=== PATIENT | female | born 1930 | race Caucasian/White ===

== ENCOUNTER → 2016-02-19 | Outpatient (CLI) | payer MEDICARE, OTHER ==
[2016-01-24 19:28] VITALS: BP 190/86
[~2016-02-19] MED LIST: ALPR0.5T PO; ASCO10006 PO; ASPI325T11 PO; CARB1TAB2 PO; CARV25TA2 PO; CITA20TA9 PO; CYAN10005 PO; DILT180C29 PO; GUAI600T38 PO; LOSA100T6 PO; OMEP20CA9 PO; SIMV20TA PO; VITA400C11 PO
--- NOTE | 2016-02-20 09:40 | RAD ---
Left lower extremity venous Doppler. History: Agent fell, leg pain, edema Left lower extremity venous Doppler study was performed. Real-time imaging with compression, color-flow imaging and spectral Doppler with augmentation were utilized for evaluation. The common femoral, greater saphenous, peroneal, and femoral veins are compressible. The popliteal vein is compressible. There is normal flow with color imaging in the deep veins of the left lower extremity. There is normal antegrade flow with augmentation. There is edema in the calf in the region of the pain which is superficial. There is flow with color imaging in the deep veins of the calf. Impression: 1. Superficial edema in the leg. 2. Negative for deep venous thrombosis.
== END | disposition home or self-care (01) ==
LOC: US 15:01
PROVIDERS: ATTEND Family Medicine
DX: I87.1 Compression of vein (principal)
CPT/HCPCS: 93971

== ENCOUNTER 2016-06-26 16:29 | Emergency (ER) | payer MEDICARE, OTHER ==
[~2016-06-26] VITALS: Ht 149.9 cm; Wt 53.1 kg
[2016-06-26] MEDS ORDERED: GLUCAGON,HUMAN RECOMBINANT 1 MG/ML VIAL. IM ONE (16:45)
[2016-06-26] MEDS ORDERED: NITROGLYCERIN SUBLINGUAL 0.4 MG BOTTLE OF 25. SL PRN (16:45)
--- NOTE | 2016-06-26 16:52 | PHYS DOC ---
Past Medical History Past Medical History: CHF, COPD, Diverticulitis, Hypertension Past Surgical History: Cholecystectomy, Other Additional Past Surgical Histo: AORTIC BYPASS, SMALL BOWEL Alcohol Use: None Drug Use: None Adult General Chief Complaint Chief Complaint: CHOKING HPI HPI This is an 86-year-old female who states she was eating steak yesterday and has a sensation that it is lodged in her lower esophagus. She states she cannot swallow her saliva. She is in no acute distress at this time. She denies any chest pain or shortness of breath. She has history of fluid bolus approximately 5 years ago that required endoscopy and dilatation procedure. Patient is normally O2 dependent at night secondary to COPD. Her room air saturation upon arrival is 95%. Review of Systems Review of Systems Constitutional: Denies fever or chills [] Eyes: Denies change in visual acuity, redness, or eye pain [] HENT: Denies nasal congestion or sore throat [] Respiratory: Denies cough or shortness of breath [] Cardiovascular: No additional information not addressed in HPI [] GI: Denies abdominal pain, nausea, vomiting, bloody stools or diarrhea [] : Denies dysuria or hematuria [] Musculoskeletal: Denies back pain or joint pain [] Integument: Denies rash or skin lesions [] Neurologic: Denies headache, focal weakness or sensory changes [] Endocrine: Denies polyuria or polydipsia [] Current Medications Current Medications Current Medications Medications (Trade) Dose Ordered Sig/Landy Start Time Stop Time Status Last Admin Dose Admin Fentanyl Citrate (Fentanyl 2ml Vial) 50 mcg PRN Q5MIN PRN 06/26/16 18:00 06/26/16 18:13 DC Glucagon (Glucagen) 1 mg 1X ONCE 06/26/16 16:45 06/26/16 16:48 DC 06/26/16 17:02 1 MG Hydromorphone HCl (Dilaudid) 0.5 mg PRN Q10MIN PRN 06/26/16 18:00 06/26/16 18:13 DC Lidocaine HCl (Lidocaine Pf 2% Vial) 5 ml STK-MED ONCE 06/26/16 18:13 06/26/16 18:14 DC Morphine Sulfate 1 mg PRN Q10MIN PRN 06/26/16 18:00 06/26/16 18:13 DC Nitroglycerin (Nitrostat) 0.4 mg PRN Q5MIN PRN 06/26/16 16:45 06/26/16 18:13 DC 06/26/16 17:03 0.4 MG Prochlorperazine Edisylate (Compazine) 5 mg PACU PRN PRN 06/26/16 18:00 06/26/16 18:13 DC Propofol 20 ml @ As Directed STK-MED ONCE 06/26/16 18:13 06/26/16 18:14 DC Ringer's Solution 1,000 ml @ 0 mls/hr Q0M 06/26/16 17:48 06/26/16 18:13 DC Sodium Chloride 500 ml @ 250 mls/hr 1X ONCE 06/26/16 17:15 06/26/16 18:13 DC 06/26/16 17:27 250 MLS/HR Allergies Allergies Allergies Coded Allergies Type Severity Reaction Last Updated Verified TONI Inhibitors Allergy Intermediate 08/12/13 Yes Cephalosporins Allergy Intermediate 08/12/13 Yes Penicillins Allergy Intermediate 08/12/13 Yes levofloxacin Allergy Intermediate 08/12/13 Yes Physical Exam Physical Exam Constitutional: Well developed, well nourished, no acute distress, non-toxic appearance. [] HENT: Normocephalic, atraumatic, bilateral external ears normal, oropharynx moist, no oral exudates, nose normal. [] Eyes: PERRLA, EOMI, conjunctiva normal, no discharge. [] Neck: Normal range of motion, no tenderness, supple, no stridor. [] Cardiovascular:Heart rate regular rhythm, no murmur [] Lungs & Thorax: Bilateral breath sounds clear to auscultation [] Abdomen: Bowel sounds normal, soft, no tenderness, no masses, no pulsatile masses. [] Skin: Warm, dry, no erythema, no rash. [] Back: No tenderness, no CVA tenderness. [] Extremities: No tenderness, no cyanosis, no clubbing, ROM intact, no edema. [] Neurologic: Alert and oriented X 3, normal motor function, normal sensory function, no focal deficits noted. [] Psychologic: Affect normal, judgement normal, mood normal. [] Current Patient Data Vital Signs Vital Signs Date Time Temp Pulse Resp B/P (MAP) Pulse Ox O2 Delivery O2 Flow Rate FiO2 06/26/16 19:06 73 20 142/65 94 Room Air 06/26/16 18:43 2.0 06/26/16 18:33 98.7 98.7 EKG EKG [] Radiology/Procedures Radiology/Procedures [] Course & Med Decision Making Course & Med Decision Making Pertinent Labs and Imaging studies reviewed. (See chart for details) This 86-year-old female who is hypertensive at 185/78 upon arrival with likely food bolus will receive sublingual nitroglycerin as well as IM glucagon. Consult to GI will be placed for likely endoscopy. I discussed the case with the GI doctor, Dr. Hitchcock, who agreed to come in for endoscopy. The patient's O2 requirements she will likely need intubation in the OR for this procedure. I communicated this need with Dr. Hitchcock, who agreed that the patient will likely be a candidate for OR. She was transferred to the OR without incident. A review of her operative report shows that she successfully had a food bolus removed and her esophagus was dilated. She was then discharged to follow with GI have a soft liquid diet at home. Dragon Disclaimer Dragon Disclaimer This electronic medical record was generated, in whole or in part, using a voice recognition dictation system. Departure Departure Impression: Primary Impression: Food impaction of esophagus Disposition: ADMITTED INPATIENT Admitting Physician: Other Condition: STABLE Referrals: YOLANDA ESCALANTE MD (PCP) NEDRA VALDEZ DO June 26, 2016 16:52
[2016-06-26] MEDS ORDERED: IV NORMAL SALINE 1000ML BAG 500 ML IV ONE (17:15)
[2016-06-26] MEDS ORDERED: IV RINGERS,LACTATED 1000ML 1,000 ML IV SCH (17:48)
[2016-06-26] MEDS ORDERED: LIDOCAINE 1% 1 ML SYRINGE. ID PRN (18:00)
[2016-06-26] MEDS ORDERED: PROCHLORPERAZINE 10 MG/2 ML VIAL. IV PRN (18:00)
[2016-06-26] MEDS ORDERED: HYDROmorphone 2 MG/ML VIAL IV PRN (18:00)
[2016-06-26] MEDS ORDERED: fentaNYL PF VIAL 100 MCG/2 ML VIAL IV PRN ×2 (18:00)
[2016-06-26] MEDS ORDERED: MORPHINE SULFATE 2 MG/ML DISP.SYRIN. IV PRN (18:00)
[2016-06-26] MEDS ORDERED: LIDOCAINE 2% PF Vial for OR 5 ML VIAL. ONE (18:13)
[2016-06-26] MEDS ORDERED: PROPOFOL 20 ML IV ONE (18:13)
--- NOTE | 2016-06-26 18:39 | PDOC2 ---
GI CONSULT Reason For Consult: Food impaction of esophagus, dysphagia HPI: HPI: 86 yo WF- COPD and CHF - in assisted living- no chronic dysphagia symptoms but prior hx of food impaction 5 years ago at [facility]- last night, had steak at family home- did not cut up meat as they do at assisted living- did not tell anyone but got food stuck about 24 hours ago- unable to take any more food today- no aspiration symptoms- no chest or abd pain- came to ER PMH: PMH: CHF COPD on night time O2 GERD prior cholecystectomy prior aortic surgery Social History: Smoke: No ALCOHOL: none ROS: GEN: Denies fevers, chills, sweats HEENT: Denies blurred vision, sore throat CV: Denies chest pain RESP: Denies shortness of air, cough GI: Per HPI : Denies hematuria, dysuria ENDO: Denies weight changes NEURO: Denies confusion, dizziness MSK: Denies weakness, joint pain/swelling SKIN: Denies jaundice, pruritus Vitals: Vitals: Vital Signs Date Time Temp Pulse Resp B/P (MAP) Pulse Ox O2 Delivery O2 Flow Rate FiO2 06/26/16 18:25 97.9 71 20 90 97.9 06/26/16 17:45 158/75 (102) Nasal Cannula 2.0 Allergies: Coded Allergies: TONI Inhibitors (Verified Allergy, Intermediate, 08/12/13) Cephalosporins (Verified Allergy, Intermediate, 08/12/13) Penicillins (Verified Allergy, Intermediate, 08/12/13) levofloxacin (Verified Allergy, Intermediate, 08/12/13) Medications: Current Medications Medications (Trade) Dose Ordered Sig/Landy Route PRN Reason Start Time Stop Time Status Last Admin Dose Admin Nitroglycerin (Nitrostat) 0.4 mg PRN Q5MIN PRN SL CHEST PAIN 06/26/16 16:45 06/26/16 18:13 DC 06/26/16 17:03 Glucagon (Glucagen) 1 mg 1X ONCE IM 06/26/16 16:45 06/26/16 16:48 DC 06/26/16 17:02 Sodium Chloride 500 ml @ 250 mls/hr 1X ONCE IV 06/26/16 17:15 06/26/16 18:13 DC 06/26/16 17:27 PE: GEN: NAD HEENT: Atraumatic, PERRLA LUNGS: CTAB HEART: RRR, no murmurs ABD: NABS, S/ND/NT, no masses EXTREMITY: No edema SKIN: No rashes, no jaundice NEURO/PSYCH: A & O 3 A/P: A/P: Food obstruction with food/foreign body- steak last night- unable to take liquids or food today- no aspiration symptoms Plan- urgent EGD with food bolus removal- with anesthesia assistance once complete, need to be on soft (mechanically )diet- no steak, only cut or chopped meats JOHNATHAN FRIEDMAN MD June 26, 2016 18:39
--- NOTE | 2016-06-26 18:45 | PDOC4 ---
PROCEDURE Procedure EGD food bolus obstruction- large meat bolus- removed by Brandin blanton mild distal stricture- dilated mechanical soft diet JOHNATHAN FRIEDMAN MD June 26, 2016 18:45
[2016-06-26 19:06] VITALS: BP 142/65
--- NOTE | 2016-06-26 20:58 | OP ---
DATE OF SURGERY: 06/26/2016 PROCEDURE: Esophagogastroduodenoscopy with foreign body removal and dilation. PRIMARY CARE PHYSICIAN: Dr. Luis Garrison. PREOPERATIVE DIAGNOSIS: Foreign body obstruction with food, of the esophagus. POSTOPERATIVE DIAGNOSES: Large piece of steak with foreign body obstruction of the esophagus, esophageal stricture, hiatal hernia. Preprocedural evaluation, consultation and timeout were performed. COMPLICATIONS: None. BLOOD LOSS: Modest, due to removal of the food. SEDATION: Provided by anesthesia. DESCRIPTION OF PROCEDURE: The patient was placed in the left lateral decubitus position. A bite block was inserted. After appropriate sedation, Olympus video endoscope was passed through the oropharynx and into the esophagus where in the mid portion of the esophagus we began to see a large amount of meat and food obstructing the esophagus. Gentle pressure was used to push through this area and see that there was a distal mild stricture and a hiatal hernia. However, the food was so large that the scope could not push it through the esophagus. The largest portion of this meat was then removed using a Ghotra Net. It was a large bolus of food requiring great traction to pull it through the esophagus and then was delivered. This was approximately 4 x 5 cm in size. After removal, the scope was reintroduced. The area was irrigated. There was some trauma. The distal stricture was then dilated with a 50-Frisian Aguilera dilator successfully and the patient tolerated the procedure well. No additional evaluation of the stomach due to the retained food from the esophageal bolus. IMPRESSION: 1. Large food bolus obstruction of the esophagus, successfully removed with a Ghotra Net removal and traction. 2. Successful dilation of the esophagus. PLAN: 1. Mechanically soft diet, chop any meats or foods carefully, only soft foods and liquids for the next few days. 2. Continue other medications. JOHNATHAN FRIEDMAN MD DR: COLLEEN/fatou JOB#: [id number] / [id number] LUIS Fisher MD
== END 2016-06-26 18:11 | disposition other institution (70) ==
LOC: ER 17:43
DX: T18.128A Food in esophagus causing other injury, initial encounter (principal); I11.0 Hypertensive heart disease with heart failure; I50.9 Heart failure, unspecified; J44.9 Chronic obstructive pulmonary disease, unspecified; K21.9 Gastro-esophageal reflux disease without esophagitis; Z90.49 Acquired absence of other specified parts of digestive tract; Z87.19 Personal history of other diseases of the digestive system; Z99.81 Dependence on supplemental oxygen; Z88.0 Allergy status to penicillin; Z88.1 Allergy status to other antibiotic agents; Z88.8 Allergy status to other drugs, medicaments and biological substances
CPT/HCPCS: 96360; 96372; 99285; C1757; J1610; J2704; J7030

== ENCOUNTER 2017-03-18 15:50 | Emergency (ER) | payer MEDICARE, OTHER ==
[2017-03-18] MEDS: IPRATRPIUM/ALBUTEROL 0.5/2.5MG 3 ML NEBU. NEB ×2 (16:53)
[2017-03-18 17:04] LABS: INFLUENZA A PATIENT NEGATIVE (NEGATIVE); INFLUENZA B PATIENT NEGATIVE (NEGATIVE)
[2017-03-18 17:05] LABS: OBC FLU VALID
[2017-03-18] MEDS: AZITHROMYCIN 250 MG TABLET. PO ×2 (17:26)
== END 2017-03-18 17:42 | disposition home or self-care (01) ==
LOC: ER 15:50
DX: J40 Bronchitis, not specified as acute or chronic (principal); J44.9 Chronic obstructive pulmonary disease, unspecified; I11.0 Hypertensive heart disease with heart failure; I50.9 Heart failure, unspecified; E78.00 Pure hypercholesterolemia, unspecified; Z88.0 Allergy status to penicillin; Z90.49 Acquired absence of other specified parts of digestive tract; Z95.1 Presence of aortocoronary bypass graft; Z87.891 Personal history of nicotine dependence; Z88.8 Allergy status to other drugs, medicaments and biological substances; Z88.1 Allergy status to other antibiotic agents
CPT/HCPCS: 71046; 87804; 87804-59; 94640; 99285-25; J7620; Q0144

== ENCOUNTER 2017-08-13 15:29 | Emergency (ER) | payer MEDICARE, OTHER ==
[2017-08-13 16:19] LABS: ADD MAN DIFF? NO
[2017-08-13 16:21] LABS: AGAP ISTAT 16 mmol/L (6-14); BUN ISTAT 15 mg/dL (8-26); CHLORIDE ISTAT 94 mmol/L (98-110); CREATININE ISTAT 0.8 mg/dL (0.5-1.4); GLUCOSE ISTAT 98 mg/dL (70-99); HEMATOCRIT ISTAT 42 % (36-40); HEMOGLOBIN ISTAT 14.3 g/dL (12-15); ION CA ISTAT 1.22 mmol/L (1.13-1.32); SODIUM ISTAT 134 mmol/L (135-145); TOT CO2 ISTAT 28 mmol/L (23-32)
[2017-08-13 16:22] LABS: BASO % 0 % (0-3); EOS # 0.2 x10^3/uL (0.0-0.7); EOS % 1 % (0-3); HEMATOCRIT 39.6 % (36.0-47.0); HEMOGLOBIN 13.5 g/dL (12.0-15.5); LYMPH # 1.6 x10^3/uL (1.0-4.8); LYMPH % 12 % (24-48); MEAN CORPUSCULAR HEMOGLOBIN 33 pg (25-35); MEAN CORPUSCULAR HGB CONC 34 g/dL (31-37); MEAN CORPUSCULAR VOLUME 98 fL (79-100); MONO # 0.8 x10^3/uL (0.0-1.1); MONO % 6 % (0-9); NEUT # 10.2 x10^3uL (1.8-7.7); NEUT % 80 % (31-73); PLATELET COUNT 331 x10^3/uL (140-400); RED BLOOD COUNT 4.06 x10^6/uL (3.50-5.40); RED CELL DISTRIBUTION WIDTH 13.4 % (11.5-14.5); WHITE BLOOD COUNT 12.8 x10^3/uL (4.0-11.0)
[2017-08-13] MEDS: IOHEXOL 300 MG/ML 100ML VIAL. IV (16:30)
[2017-08-13 16:36] LABS: BILIRUBIN,URINE NEGATIVE (NEG); CLARITY,URINE CLEAR; COLOR,URINE YELLOW; GLUCOSE,URINE NEGATIVE (NEG); NITRITE,URINE NEGATIVE (NEG); PH,URINE 6.5; PROTEIN,URINE NEGATIVE (NEG-TRACE); UROBILINOGEN,URINE 0.2 mg/dL (0.2 mg/dL)
[2017-08-13 16:38] LABS: RBC,URINE OCC /HPF (0-2)
[2017-08-13 16:39] LABS: BACTERIA,URINE 0 /HPF (0-FEW); HYALINE CASTS, URINE OCCASIONAL /HPF; SQUAMOUS EPITHELIAL CELL,UR OCC /LPF; WBC,URINE 0 /HPF (0-4)
[2017-08-13] MEDS ORDERED: CONTRAST GIVEN. MC (16:45)
[2017-08-13] MEDS: ACETAMINOPHEN 500 MG TABLET PO (17:31)
== END 2017-08-13 18:52 | disposition home or self-care (01) ==
LOC: ER 15:29
DX: S09.90XA Unspecified injury of head, initial encounter (principal); M54.6 Pain in thoracic spine; I48.91 Unspecified atrial fibrillation; J44.9 Chronic obstructive pulmonary disease, unspecified; E78.00 Pure hypercholesterolemia, unspecified; I11.0 Hypertensive heart disease with heart failure; I50.9 Heart failure, unspecified; I25.2 Old myocardial infarction; Z90.49 Acquired absence of other specified parts of digestive tract; Z79.01 Long term (current) use of anticoagulants; W18.39XA Other fall on same level, initial encounter; Y93.89 Activity, other specified; Y99.8 Other external cause status; Y92.89 Other specified places as the place of occurrence of the external cause
CPT/HCPCS: 36415; 70450; 71260; 72125; 80047; 81001; 85025; 99285-25; Q9967